=== PATIENT | male | born 1985 | race Caucasian/White ===

== ENCOUNTER 2021-05-17 19:11 | Emergency (ER) | payer MEDICAID ==
[~2021-05-17] VITALS: Ht 167.6 cm; Wt 68.9 kg
[2021-05-17 19:12] VITALS: BP_SYST 145
--- NOTE | 2021-05-17 19:12 | NUR ---
Pt brought by ambulance, A&Ox4 pt presents to ER for evaluation since pt was talking to himself at the street, pt states he is feeling fine and wants to go, admits taking speed ,pt denies chest pain, denies suicidal or homicidal thoughts, VSS, respirations even and unlabored.
--- NOTE | 2021-05-17 19:20 | NUR ---
Dr Ngo evaluating patient in the [facility]
[2021-05-17 19:28] VITALS: BP_SYST 145
--- NOTE | 2021-05-17 19:48 | NUR ---
Patient does not wish to proceed with medical care recommended by Dr Ngo . Patient given information related to possible complications, up to and including , which could occur as a result of leaving hospital at this time. Patient verbalizes understanding of risks involved leaving against medical advice. Patient has signed AMA form.
== END 2021-05-17 19:28 | disposition left against medical advice (07) ==
LOC: SED 19:11
DX: R07.89 Other chest pain (principal)
CPT/HCPCS: 99283